=== PATIENT | female | born 1935 | race Caucasian/White ===

== ENCOUNTER 2018-02-15 05:36 | Inpatient (IN) | payer MEDICARE, OTHER ==
[2018-02-15] MEDS ORDERED: Ondansetron 4 MG/2 ML SDV IVPUSH ONE (06:08)
[2018-02-15] MEDS ORDERED: fentaNYL 100 MCG/2 ML SDV IVPUSH ONE (06:08)
--- NOTE | 2018-02-15 06:08 | EDM.PDOC ---
ED HPI GENERAL MEDICAL PROBLEM - General Chief Complaint: Abdominal Pain Stated Complaint: R Side Pain Time Seen by Provider: 02/15/18 06:02 Source of Information: Reports: Patient - History of Present Illness INITIAL COMMENTS - FREE TEXT/NARRATIVE: Ila is an 82 year old female who presents to the Ed with c/o RUQ abdominal pain. She rates the pain a 9/10 and describes it as sharp in nature. She reports she woke from sleep around 3 am with onset of pain. She does reports that about 3 weeks ago she had a hysterectomy and then subsequently developed a SBO. She reports that she had surgery for SBO as well, however she does not know what and records are not obtainable. She also reports that she saw Dr. Talbot in clinic this week and was started on an antibiotic for a UTI. She reports she has had a decreased appetite the past few days. She reports she is nauseated, but has not vomited. Denies any fever, reports she has been chilled. Reports she had a BM yesterday morning. Does not notice she is passing much gas. She denies any urinary frequency or urgency. Reports she has had an occasional nonproductive cough. She denies any shortness of breath, however she does appear slightly winded with conversation. Onset: Today, Sudden Onset Date: 02/15/18 Onset Time: 03:00 Right Thoracic Pain Score (Numeric/FACES): 9 - Related Data Allergies Allergy/AdvReac Type Severity Reaction Status Date / Time No Known Allergies Allergy Verified 02/15/18 05:37 Home Meds: Home Meds Cefuroxime Axetil [Cefuroxime] 250 mg PO DAILY 02/15/18 [History] Pantoprazole Sodium [Protonix] 20 mg PO DAILY 02/15/18 [History] Sucralfate 1 gm PO DAILY 02/15/18 [History] Past Medical History HEENT History: Reports: None Cardiovascular History: Reports: None Respiratory History: Reports: None Gastrointestinal History: Reports: Bowel Obstruction Genitourinary History: Reports: None [employer]IAN History: Reports: None Musculoskeletal History: Reports: None Neurological History: Reports: None Psychiatric History: Reports: None Endocrine/Metabolic History: Reports: None Hematologic History: Reports: None Immunologic History: Reports: None Oncologic (Cancer) History: Reports: None Dermatologic History: Reports: None - Infectious Disease History Infectious Disease History: Reports: None - Past Surgical History Head Surgeries/Procedures: Reports: None HEENT Surgical History: Reports: None Cardiovascular Surgical History: Reports: None Respiratory Surgical History: Reports: None GI Surgical History: Reports: Small Bowel Female Surgical History: Reports: Hysterectomy Endocrine Surgical History: Reports: None Neurological Surgical History: Reports: None Musculoskeletal Surgical History: Reports: Other (See Below) Other Musculoskeletal Surgeries/Procedures:: R foot surgery Oncologic Surgical History: Reports: None Social & Family History - Family History Family Medical History: Noncontributory - Tobacco Use Smoking Status *Q: Never Smoker ED ROS GENERAL - Review of Systems Review Of Systems: See Below Constitutional: Reports: Chills, Fatigue, Decreased Appetite. Denies: Fever, Weakness HEENT: Reports: No Symptoms Respiratory: Denies: Shortness of Breath, Cough, Sputum Cardiovascular: Denies: Chest Pain, Dyspnea on Exertion, Lightheadedness GI/Abdominal: Reports: Abdominal Pain, Nausea. Denies: Constipation, Diarrhea, Distension, Vomiting : Denies: Dysuria, Frequency, Urgency Musculoskeletal: Reports: No Symptoms Skin: Reports: No Symptoms Neurological: Reports: No Symptoms. Denies: Confusion, Dizziness, Headache, Numbness, Tingling, Weakness Psychiatric: Reports: No Symptoms Hematologic/Lymphatic: Reports: No Symptoms Immunologic: Reports: No Symptoms ED EXAM, GI/ABD - Physical Exam Exam: See Below Exam Limited By: No Limitations General Appearance: Alert, WD/WN, Moderate Distress Head: Atraumatic, Normocephalic Neck: Normal Inspection, Supple, Non-Tender, Full Range of Motion Respiratory/Chest: No Respiratory Distress, Lungs Clear, Normal Breath Sounds, No Accessory Muscle Use, Chest Non-Tender Cardiovascular: Normal Peripheral Pulses, Regular Rate, Rhythm, No Edema, No Gallop, No JVD, No Murmur, No Rub GI/Abdominal Exam: Normal Bowel Sounds, Distended, Tender. No: Guarding, Rigid , Rebound Back Exam: Normal Inspection, Full Range of Motion. No: CVA Tenderness (L), CVA Tenderness (R) Extremities: Normal Inspection, Normal Range of Motion, Non-Tender, Normal Capillary Refill, No Pedal Edema Neurological: Alert, Oriented, CN II-XII Intact, Normal Cognition, Normal Gait, Normal Reflexes, No Motor/Sensory Deficits Psychiatric: Normal Affect, Normal Mood Skin Exam: Warm, Dry, Intact, Normal Color, No Rash Lymphatic: No Adenopathy Course - Vital Signs Last Recorded V/S: Last Vital Signs Temp 99.1 F 02/15/18 20:35 Pulse 84 02/15/18 19:18 Resp 18 02/15/18 19:18 BP 119/58 L 02/15/18 19:18 Pulse Ox 93 L 02/15/18 19:18 - Orders/Labs/Meds Orders: Active Orders 24 hr Category Date Time Status Abdomen Pelvis w Cont [CT] Stat Exams 02/15/18 06:34 Taken CTA Chest W WO Contrast [Ang Chest] [CT] Stat Exams 02/15/18 07:19 Taken Medication Orders Acetaminophen (Tylenol) 650 mg PO Q4H PRN PRN Reason: Pain (Mild 1-3)/fever Last Admin: 02/15/18 20:09 Dose: 650 mg Ceftriaxone Sodium (Rocephin) 1 gm IVPUSH Q24H [facility] [place] Last Admin: 02/15/18 10:01 Dose: 1 gm Enoxaparin Sodium (Lovenox) 60 mg SUBCUT Q12H [facility] [place] Last Admin: 02/15/18 20:09 Dose: 60 mg Admin: 02/15/18 10:02 Dose: 60 mg Fentanyl (Sublimaze) 25 mcg IVPUSH Q12H PRN PRN Reason: Pain Last Admin: 02/15/18 09:58 Dose: 25 mcg Lactated Ringer's (Ringers, Lactated) 1,000 mls @ 75 mls/hr IV ONETIME ONE Stop: 02/16/18 00:19 Last Admin: 02/15/18 14:25 Dose: 75 mls/hr Ondansetron HCl (Zofran) 4 mg IV Q6H PRN PRN Reason: Nausea/Vomiting Temazepam (Restoril) 15 mg PO BEDTIME PRN PRN Reason: Sleep Warfarin Sodium (Coumadin) 5 mg PO DAILY@1200 [facility] [place] Last Admin: 02/15/18 12:11 Dose: 5 mg Labs: Laboratory Tests 02/15/18 02/15/18 02/15/18 Range/Units 05:40 05:45 05:45 WBC 13.0 H (5.0-10.0) 10^3/uL RBC 4.04 (4.00-5.50) 10^6/uL Hgb 12.4 (12.0-16.0) g/dL Hct 38.2 (37.0-47.0) % MCV 94.6 H (82.0-94.0) fL MCH 30.7 (27.0-32.0) pg MCHC 32.5 L (33.0-38.0) g/dL RDW Coeff of Evonne 13.2 (11.0-15.0) % Plt Count 274 (150-400) 10^3/uL Neut % (Auto) 69.7 (35-85) % Lymph % (Auto) 19.6 (10-55) % Webb % (Auto) 8.5 (0-16) % Eos % (Auto) 1.7 (0-5) % Baso % (Auto) 0.5 (0-3) % Neut # (Auto) 9.06 H (1.80-7.00) 10^3/uL Lymph # (Auto) 2.55 (1.00-4.80) 10^3/uL Webb # (Auto) 1.11 H (0.00-0.80) 10^3/uL Eos # (Auto) 0.22 (0.00-0.45) 10^3/uL Baso # (Auto) 0.06 10^3/uL D-Dimer, Quantitative (0.00-0.50) Sodium 137 (136-145) mEq/L Potassium 4.1 D (3.5-5.0) mEq/L Chloride 101 (98-106) mEq/L Carbon Dioxide 25 (21-32) mmol/L BUN 12 (7-18) mg/dL Creatinine 0.8 (0.6-1.0) mg/dL Est Cr Clr Drug Dosing 38.27 mL/min Estimated GFR (MDRD) > 60 (>=60) mL/min Glucose 114 H (75-99) mg/dL Calcium 8.5 (8.4-10.1) mg/dL Total Bilirubin 0.6 (0.0-1.0) mg/dL AST 19 (15-37) U/L ALT 15 (12-78) U/L Alkaline Phosphatase 91 (46-116) U/L C-Reactive Protein 5.8 H (0.2-0.8) mg/dL Total Protein 6.7 (6.4-8.2) g/dL Albumin 2.7 L (3.4-5.0) g/dL Urine Color Yellow (YELLOW) Urine Appearance Cloudy (CLEAR) Urine pH 6.0 (4.5-8.0) Ur Specific [place] 1.020 (1.003-1.020) Urine Protein Trace H (NEGATIVE) mg/dL Urine Glucose (UA) Negative (NEGATIVE) mg/dL Urine Ketones Negative (NEGATIVE) mg/dL Urine Occult Blood Trace-lysed H (NEGATIVE) Urine Nitrite Negative (NEGATIVE) Urine Bilirubin Negative (NEGATIVE) Urine Urobilinogen 0.2 (0.2-1.0) EU/dL Ur Leukocyte Esterase Large H (NEGATIVE) Urine RBC Not seen (0-5) /HPF Urine WBC 30-40 H (0-5) /HPF Ur Squamous Epith Cells Moderate H (NOT SEEN) /HPF Urine Bacteria Moderate H (NOT SEEN) /HPF 02/15/18 Range/Units 06:35 WBC (5.0-10.0) 10^3/uL RBC (4.00-5.50) 10^6/uL Hgb (12.0-16.0) g/dL Hct (37.0-47.0) % MCV (82.0-94.0) fL MCH (27.0-32.0) pg MCHC (33.0-38.0) g/dL RDW Coeff of Evonne (11.0-15.0) % Plt Count (150-400) 10^3/uL Neut % (Auto) (35-85) % Lymph % (Auto) (10-55) % Webb % (Auto) (0-16) % Eos % (Auto) (0-5) % Baso % (Auto) (0-3) % Neut # (Auto) (1.80-7.00) 10^3/uL Lymph # (Auto) (1.00-4.80) 10^3/uL Webb # (Auto) (0.00-0.80) 10^3/uL Eos # (Auto) (0.00-0.45) 10^3/uL Baso # (Auto) 10^3/uL D-Dimer, Quantitative 5.41 H (0.00-0.50) Sodium (136-145) mEq/L Potassium (3.5-5.0) mEq/L Chloride (98-106) mEq/L Carbon Dioxide (21-32) mmol/L BUN (7-18) mg/dL Creatinine (0.6-1.0) mg/dL Est Cr Clr Drug Dosing mL/min Estimated GFR (MDRD) (>=60) mL/min Glucose (75-99) mg/dL Calcium (8.4-10.1) mg/dL Total Bilirubin (0.0-1.0) mg/dL AST (15-37) U/L ALT (12-78) U/L Alkaline Phosphatase (46-116) U/L C-Reactive Protein (0.2-0.8) mg/dL Total Protein (6.4-8.2) g/dL Albumin (3.4-5.0) g/dL Urine Color (YELLOW) Urine Appearance (CLEAR) Urine pH (4.5-8.0) Ur Specific [place] (1.003-1.020) Urine Protein (NEGATIVE) mg/dL Urine Glucose (UA) (NEGATIVE) mg/dL Urine Ketones (NEGATIVE) mg/dL Urine Occult Blood (NEGATIVE) Urine Nitrite (NEGATIVE) Urine Bilirubin (NEGATIVE) Urine Urobilinogen (0.2-1.0) EU/dL Ur Leukocyte Esterase (NEGATIVE) Urine RBC (0-5) /HPF Urine WBC (0-5) /HPF Ur Squamous Epith Cells (NOT SEEN) /HPF Urine Bacteria (NOT SEEN) /HPF Meds: Medications Generic Name Dose Route Start Last Admin Trade Name Freq PRN Reason Stop Dose Admin Acetaminophen 650 mg 02/15/18 09:23 02/15/18 20:09 Tylenol PO 650 mg Q4H PRN Administration Pain (Mild 1-3)/fever Ceftriaxone Sodium 1 gm 02/15/18 10:00 02/15/18 10:01 Rocephin IVPUSH 1 gm Q24H [place] Administration Enoxaparin Sodium 60 mg 02/15/18 09:00 02/15/18 20:09 Lovenox SUBCUT 60 mg Q12H [place] Administration Fentanyl 25 mcg 02/15/18 09:36 02/15/18 09:58 Sublimaze IVPUSH 25 mcg Q12H PRN Administration Pain Lactated Ringer's 1,000 mls @ 75 mls/hr 02/15/18 11:00 02/15/18 14:25 Ringers, Lactated IV 02/16/18 00:19 75 mls/hr ONETIME ONE Administration Ondansetron HCl 4 mg 02/15/18 09:23 Zofran IV Q6H PRN Nausea/Vomiting Temazepam 15 mg 02/15/18 09:23 Restoril PO BEDTIME PRN Sleep Warfarin Sodium 5 mg 02/15/18 12:00 02/15/18 12:11 Coumadin PO 5 mg DAILY@1200 [place] Administration Discontinued Medications Generic Name Dose Route Start Last Admin Trade Name Freq PRN Reason Stop Dose Admin Fentanyl 50 mcg 02/15/18 06:08 02/15/18 06:22 Sublimaze IVPUSH 02/15/18 06:09 50 mcg ONETIME ONE Administration Lactated Ringer's 1,000 mls @ 999 mls/hr 02/15/18 06:25 02/15/18 06:44 Ringers, Lactated IV 02/15/18 07:25 999 mls/hr .BOLUS ONE Administration Iopamidol 100 ml 02/15/18 07:24 02/15/18 07:48 Isovue-370 (76%) IVPUSH 02/15/18 07:25 100 ml ONETIME ONE Administration Ondansetron HCl 4 mg 02/15/18 06:08 02/15/18 06:21 Zofran IVPUSH 02/15/18 06:09 4 mg STAT ONE Administration Departure - Departure Time of Disposition: 09:13 Disposition: Admitted As Inpatient 65 Condition: Fair Clinical Impression: Pulmonary embolism, bilateral, Status post hysterectomy, UTI (urinary tract infection) - Discharge Information - Problem List & Annotations (1) Pulmonary embolism, bilateral SNOMED Code(s): 43689099 Code(s): I26.99 - OTHER PULMONARY EMBOLISM WITHOUT ACUTE COR PULMONALE Status: Acute Current Visit: Yes (2) UTI (urinary tract infection) SNOMED Code(s): 57082850 Code(s): N39.0 - URINARY TRACT INFECTION, SITE NOT SPECIFIED Status: Acute Current Visit: Yes Qualifiers: Urinary tract infection type: site unspecified Hematuria presence: without hematuria Qualified Code(s): N39.0 - Urinary tract infection, site not specified (3) Status post hysterectomy SNOMED Code(s): 689708806, 750494409, 356283034 Code(s): Z90.710 - ACQUIRED ABSENCE OF BOTH CERVIX AND UTERUS Status: Acute Current Visit: Yes - Problem List Review Problem List Initiated/Reviewed/Updated: Yes - My Orders Last 24 Hours: My Active Orders 02/15/18 06:34 Abdomen Pelvis w Cont [CT] Stat 02/15/18 07:19 CTA Chest W WO Contrast [Ang Chest] [CT] Stat - Assessment/Plan Admission H&P: Please use this note as an admission H&P Last 24 Hours: My Active Orders 02/15/18 06:34 Abdomen Pelvis w Cont [CT] Stat 02/15/18 07:19 CTA Chest W WO Contrast [Ang Chest] [CT] Stat Plan: CTA chest reveals bilateral segmental and proximal subsegmental branches involving all lobes of the lungs. CTA abdomen/pelvis reveals no acute inflammatory process or abdomen or pelvis. Diverticulosis without diverticulitis. Will admit patient acute to Dr. Talbot for IV antibiotics and initiation of anticoagulation. Discussed with patient that these PEs are likely from recent surgery and increased risk during that time. Discussed that she will need to be anticoagulated for at least a 3 month period. She does report that she had some pain in her right calf last week, none currently. Discussed options for anticoagulation with patient and her . Opt to initiate Coumadin therapy. Will dose 5 mg today. Bridge with Lovenox until INR therapeutic. UA positive. Patient has failed outpatient therapy. She was currently taking Ceftin. Will get urine culture. Start Rocephin. Recheck labs in am.
[2018-02-15 06:13] LABS: CHLORIDE,CL 101 mEq/L (98-106); SODIUM,NA 137 mEq/L (136-145)
[2018-02-15] MEDS ORDERED: Lactated Ringers 1,000 ML IV ONE ×2 (06:25→11:00)
[2018-02-15] MEDS ORDERED: Iopamidol 755 Mg/ML 100 ML Bottle IVPUSH ONE (07:24)
[2018-02-15] MEDS ORDERED: Ondansetron 4 MG/2 ML SDV IV PRN (09:23)
[2018-02-15] MEDS ORDERED: Temazepam 15 MG Cap PO PRN (09:23)
[2018-02-15] MEDS ORDERED: fentaNYL 100 MCG/2 ML SDV IVPUSH PRN (09:36)
[2018-02-15] MEDS: cefTRIAXone 1 GM Vial IVPUSH SCH (10:01)
[2018-02-15] MEDS: Enoxaparin 60 MG/0.6 ML Syringe SUBCUT SCH ×2 (10:02→20:09)
[2018-02-15] MEDS: Warfarin 5 MG Tab PO SCH (12:11)
[2018-02-15] MEDS: Acetaminophen 325 MG Tab PO PRN (20:09)
--- NOTE | 2018-02-16 10:11 | PCM.PN ---
- General Info Date of Service: 02/16/18 Admission Dx/Problem (Free Text): Multiple Bilateral Pulmonary Emboli UTI Subjective Update: Ila reports she is feeling a little better this morning. She reports she still feels weak and has a very decreased appetite. Continues to have pleuritic pain to her right side, worsens with breathing. She also reports she feels nauseated with food and has some epigastric pain. She reports she has "stuggled with ulcers for years." Functional Status: Reports: Pain Controlled, Tolerating Diet, Ambulating, Urinating. Denies: New Symptoms - Review of Systems General: Reports: Weakness, Fatigue. Denies: Fever, Chills HEENT: Reports: No Symptoms Pulmonary: Reports: Pleuritic Chest Pain. Denies: Shortness of Breath, Cough, Sputum, Hemoptysis, Wheezing Cardiovascular: Reports: No Symptoms. Denies: Chest Pain, Dyspnea on Exertion, Edema, Lightheadedness Gastrointestinal: Reports: Abdominal Pain (epigastric), Decreased Appetite, Nausea. Denies: Constipation, Diarrhea, Hematochezia, Melena, Vomiting Genitourinary: Reports: No Symptoms. Denies: Dysuria, Frequency, Urgency Musculoskeletal: Reports: No Symptoms Skin: Reports: No Symptoms Neurological: Reports: Weakness. Denies: Confusion, Dizziness, Headache, Numbness, Tingling Psychiatric: Reports: No Symptoms - Patient Data Vitals - Most Recent: Last Vital Signs Temp 99 F 02/16/18 07:47 Pulse 85 02/16/18 07:47 Resp 18 02/16/18 07:47 BP 133/75 02/16/18 07:47 Pulse Ox 96 02/16/18 07:47 Weight - Most Recent: 150 lb 12.8 oz Lab Results Last 24 Hours: Laboratory Results - last 24 hr 02/16/18 02/16/18 02/16/18 Range/Units 07:25 07:25 07:25 WBC 10.8 H (5.0-10.0) 10^3/uL RBC 3.86 L (4.00-5.50) 10^6/uL Hgb 11.6 L (12.0-16.0) g/dL Hct 36.7 L (37.0-47.0) % MCV 95.1 H (82.0-94.0) fL MCH 30.1 (27.0-32.0) pg MCHC 31.6 L (33.0-38.0) g/dL RDW Coeff of Evonne 13.1 (11.0-15.0) % Plt Count 247 (150-400) 10^3/uL Neut % (Auto) 69.3 (35-85) % Lymph % (Auto) 17.1 (10-55) % [place] % (Auto) 8.3 (0-16) % Eos % (Auto) 4.7 (0-5) % Baso % (Auto) 0.6 (0-3) % Neut # (Auto) 7.48 H (1.80-7.00) 10^3/uL Lymph # (Auto) 1.85 (1.00-4.80) 10^3/uL [place] # (Auto) 0.90 H (0.00-0.80) 10^3/uL Eos # (Auto) 0.51 H (0.00-0.45) 10^3/uL Baso # (Auto) 0.07 10^3/uL PT 11.3 (9.7-12.3) SEC INR 1.09 (0.92-1.18) C-Reactive Protein 12.1 H (0.2-0.8) mg/dL Glynn Results Last 24 Hours: Microbiology 02/15/18 09:23 Urine Culture - Preliminary Urine, Voided Med Orders - Current: Current Medications Acetaminophen (Tylenol) 650 mg PO Q4H PRN PRN Reason: Pain (Mild 1-3)/fever Last Admin: 02/15/18 20:09 Dose: 650 mg Ceftriaxone Sodium (Rocephin) 1 gm IVPUSH Q24H [place] Last Admin: 02/15/18 10:01 Dose: 1 gm Enoxaparin Sodium (Lovenox) 60 mg SUBCUT Q12H [facility] Last Admin: 02/15/18 20:09 Dose: 60 mg Fentanyl (Sublimaze) 25 mcg IVPUSH Q12H PRN PRN Reason: Pain Last Admin: 02/15/18 09:58 Dose: 25 mcg Ondansetron HCl (Zofran) 4 mg IV Q6H PRN PRN Reason: Nausea/Vomiting Temazepam (Restoril) 15 mg PO BEDTIME PRN PRN Reason: Sleep Warfarin Sodium (Coumadin) 5 mg PO DAILY@1200 [place] Last Admin: 02/15/18 12:11 Dose: 5 mg Discontinued Medications Fentanyl (Sublimaze) 50 mcg IVPUSH ONETIME ONE Stop: 02/15/18 06:09 Last Admin: 02/15/18 06:22 Dose: 50 mcg Lactated Ringer's (Ringers, Lactated) 1,000 mls @ 999 mls/hr IV .BOLUS ONE Stop: 02/15/18 07:25 Last Admin: 02/15/18 06:44 Dose: 999 mls/hr Lactated Ringer's (Ringers, Lactated) 1,000 mls @ 75 mls/hr IV ONETIME ONE Stop: 02/16/18 00:19 Last Admin: 02/15/18 14:25 Dose: 75 mls/hr Iopamidol (Isovue-370 (76%)) 100 ml IVPUSH ONETIME ONE Stop: 02/15/18 07:25 Last Admin: 02/15/18 07:48 Dose: 100 ml Ondansetron HCl (Zofran) 4 mg IVPUSH STAT ONE Stop: 02/15/18 06:09 Last Admin: 02/15/18 06:21 Dose: 4 mg - Exam Quality Assessment: DVT Prophylaxis General: Alert, Oriented, No Acute Distress Neck: Supple Lungs: Clear to Auscultation, Normal Respiratory Effort Cardiovascular: Regular Rate, Regular Rhythm GI/Abdominal Exam: Normal Bowel Sounds, Soft, No Organomegaly, No Distention, No Abnormal Bruit, Tender (epigastric). No: Guarding, Rigid, Rebound Back Exam: Normal Inspection, Full Range of Motion. No: CVA Tenderness (L), CVA Tenderness (R) Extremities: Normal Inspection, Normal Range of Motion, Non-Tender, No Pedal Edema, Normal Capillary Refill Skin: Warm, Dry, Intact Neurological: No New Focal Deficit Psy/Mental Status: Alert, Normal Affect, Normal Mood - Problem List & Annotations (1) Pulmonary embolism, bilateral SNOMED Code(s): 38079639 Code(s): I26.99 - OTHER PULMONARY EMBOLISM WITHOUT ACUTE COR PULMONALE Status: Acute Current Visit: Yes (2) UTI (urinary tract infection) SNOMED Code(s): 98839464 Code(s): N39.0 - URINARY TRACT INFECTION, SITE NOT SPECIFIED Status: Acute Current Visit: Yes Qualifiers: Urinary tract infection type: site unspecified Hematuria presence: without hematuria Qualified Code(s): N39.0 - Urinary tract infection, site not specified (3) Status post hysterectomy SNOMED Code(s): 058767217, 553411597, 711690522 Code(s): Z90.710 - ACQUIRED ABSENCE OF BOTH CERVIX AND UTERUS Status: Acute Current Visit: Yes - Problem List Review Problem List Initiated/Reviewed/Updated: Yes - My Orders Last 24 Hours: My Active Orders 02/15/18 09:23 Patient Status [ADT] Routine Cardiac Monitoring [RC] 0800,2000 Oxygen Therapy [RC] .PRN Pulse Oximetry [RC] .PRN Up With Assistance [RC] .PRN Vital Signs [RC] 0000,0400,0800,1200,1600,2000 CULTURE URINE [RM] Stat Acetaminophen [Tylenol] 650 mg PO Q4H PRN Ondansetron [Zofran] 4 mg IV Q6H PRN Temazepam [Restoril] 15 mg PO BEDTIME PRN 02/15/18 09:36 fentaNYL [Sublimaze] 25 mcg IVPUSH Q12H PRN 02/15/18 10:00 cefTRIAXone [Rocephin] 1 gm IVPUSH Q24H 02/15/18 10:50 JOSE RAMON Hose [Antiembolic Hose] [OM.PC] Routine 02/15/18 12:00 Warfarin [Coumadin] 5 mg PO DAILY@1200 02/15/18 Lunch Regular Diet [DIET] 02/17/18 06:00 INR,PT,PROTHROMBIN TIME [COAG] DAILY 02/18/18 06:00 INR,PT,PROTHROMBIN TIME [COAG] DAILY 02/19/18 06:00 INR,PT,PROTHROMBIN TIME [COAG] DAILY 02/20/18 06:00 INR,PT,PROTHROMBIN TIME [COAG] DAILY - Assessment Assessment:: Multiple Bilateral Pulmonary Emboli UTI S/P Hysterectomy - Plan Plan:: 02/16/2018 Ila is an 82 year old female who was admitted for multiple bilateral PEs and UTI. She recently had a abdominal hysterectomy, in which she subsequently developed a SBO. She has been home for a few weeks. Incision site looks great. Presented to the ED with generalized c/o not feeling well. UA was positive. Chest CTA revealed multiple PEs. WBC improved from 13 to 10.8. CRP increased from 5.8 to 12.1. Preliminary UC negative. Will continue Rocephin and await final culture results. INR 1.09. Patient received 5 mg Coumadin yesterday. Will dose 5 mg again today and recheck INR tomorrow. Continue to bridge with lovenox. Will start protonix to see if this helps with patient's nausea and epigastric pain. She report she was on this in the past for PUD. Recheck labs in am. Patient will need to be hospitalized until INR is therapeutic. Patient agreeable with plan.
[2018-02-16] MEDS: cefTRIAXone 1 GM Vial IVPUSH SCH (10:17)
[2018-02-16] MEDS: Enoxaparin 60 MG/0.6 ML Syringe SUBCUT SCH ×2 (10:18→20:11)
[2018-02-16] MEDS: Acetaminophen 325 MG Tab PO PRN ×2 (10:23→18:28)
[2018-02-16] MEDS: Pantoprazole 40 MG Vial IVPUSH SCH (11:20)
[2018-02-16] MEDS: Warfarin 5 MG Tab PO SCH (11:21)
[2018-02-17] MEDS: Enoxaparin 60 MG/0.6 ML Syringe SUBCUT SCH ×2 (08:12→19:44)
[2018-02-17] MEDS: Pantoprazole 40 MG Vial IVPUSH SCH (08:12)
--- NOTE | 2018-02-17 10:10 | PN ---
DATE: 02/17/2018 S: Ila was seen for a new onset of pleuritic chest pain. She was found to have postop PE. Multiple, I believe she has been initiated on Lovenox and Coumadin has been started. INR still slightly subtherapeutic. She is feeling better. Denies pain. Still having some ongoing dyspepsia related to her abdominal surgeries initially a lap ovarian cyst removal with secondary small bowel obstruction, which required an open laparotomy. A CT of the abdomen and pelvis, I believe was unremarkable on admit. Since admission, she has steadily felt better. She has been afebrile. Her vital signs are stable. She is maintaining her sats. Denies any pain this morning. O: GENERAL: She is pleasant and cooperative. HEENT: Benign. NECK: Veins are flat. LUNG: Sounds are clear. CARDIAC: Tones are regular. ABDOMEN: Appears soft with good bowel sounds. EXTREMITIES: No peripheral edema seen. ASSESSMENT: 1. POSTOP PULMONARY EMBOLISM. 2. ONGOING ABDOMINAL PAIN STATUS POST OPEN LAPAROTOMY. 3. URINARY TRACT INFECTION WITH STAPH SPECIES. P: Her urine culture shows resistance. We are going to switch over to vancomycin. Continue to monitor her CRP and white counts. INR is slightly still subtherapeutic. We will continue oral Coumadin and Lovenox. No other changes at this time. JASBIR/ZAKI /[id number]
[2018-02-17] MEDS: Warfarin 5 MG Tab PO SCH (11:57)
[2018-02-17] MEDS ORDERED: cefTRIAXone 1 GM Vial IVPUSH SCH (12:00)
[2018-02-18] MEDS: Pantoprazole 40 MG Vial IVPUSH SCH (06:28)
[2018-02-18] MEDS: Enoxaparin 60 MG/0.6 ML Syringe SUBCUT SCH ×2 (07:25→19:31)
--- NOTE | 2018-02-18 09:29 | PCM.PN ---
- General Info Date of Service: 02/18/18 Admission Dx/Problem (Free Text): Multiple Bilateral Pulmonary Emboli UTI Subjective Update: Ila reports she is feeling better. Does report her appetite is still very poor. She reports she has been up walking some in the [place], but admits to being lazy and lying around. She denies any pain. She has been afebrile. VSS on RA. Functional Status: Reports: Pain Controlled, Tolerating Diet, Ambulating, Urinating. Denies: New Symptoms - Review of Systems General: Reports: Fatigue. Denies: Fever, Weakness, Chills HEENT: Reports: No Symptoms Pulmonary: Reports: Pleuritic Chest Pain (intermittently). Denies: Shortness of Breath, Cough, Sputum, Hemoptysis, Wheezing Cardiovascular: Reports: No Symptoms Gastrointestinal: Reports: No Symptoms, Decreased Appetite. Denies: Abdominal Pain, Constipation, Diarrhea, Nausea, Vomiting Genitourinary: Reports: No Symptoms. Denies: Dysuria, Frequency, Urgency Musculoskeletal: Reports: No Symptoms Skin: Reports: No Symptoms Neurological: Reports: No Symptoms Psychiatric: Reports: No Symptoms - Patient Data Vitals - Most Recent: Last Vital Signs Temp 98.1 F 02/18/18 07:36 Pulse 74 02/18/18 07:36 Resp 18 02/18/18 07:36 BP 126/69 02/18/18 07:36 Pulse Ox 96 02/18/18 07:36 Weight - Most Recent: 150 lb 12.8 oz Lab Results Last 24 Hours: Laboratory Results - last 24 hr 02/18/18 Range/Units 06:00 PT 17.6 H (9.7-12.3) SEC INR 1.77 H (0.92-1.18) Glynn Results Last 24 Hours: Microbiology 02/15/18 09:23 Urine Culture - Final Urine, Voided Staphylococcus Haemolyticus Med Orders - Current: Current Medications Acetaminophen (Tylenol) 650 mg PO Q4H PRN PRN Reason: Pain (Mild 1-3)/fever Last Admin: 02/16/18 18:28 Dose: 650 mg Enoxaparin Sodium (Lovenox) 60 mg SUBCUT BID [place] Last Admin: 02/18/18 07:25 Dose: 60 mg Fentanyl (Sublimaze) 25 mcg IVPUSH Q12H PRN PRN Reason: Pain Last Admin: 02/15/18 09:58 Dose: 25 mcg Vancomycin HCl 1 gm/ Sodium (Chloride) 250 mls @ 167 mls/hr IV DAILY@0800 [facility] Last Admin: 02/18/18 07:23 Dose: 167 mls/hr Ondansetron HCl (Zofran) 4 mg IV Q6H PRN PRN Reason: Nausea/Vomiting Pantoprazole Sodium (Protonix Iv) 40 mg IVPUSH DAILY@0700 [facility] Last Admin: 02/18/18 06:28 Dose: 40 mg Temazepam (Restoril) 15 mg PO BEDTIME PRN PRN Reason: Sleep Warfarin Sodium (Coumadin) 5 mg PO DAILY@1200 [facility] Last Admin: 02/17/18 11:57 Dose: 5 mg Discontinued Medications Ceftriaxone Sodium (Rocephin) 1 gm IVPUSH Q24H [facility] Last Admin: 02/16/18 10:17 Dose: 1 gm Ceftriaxone Sodium (Rocephin) 1 gm IVPUSH DAILY@1200 [facility] Enoxaparin Sodium (Lovenox) 60 mg SUBCUT Q12H [facility] Last Admin: 02/17/18 08:12 Dose: 60 mg Fentanyl (Sublimaze) 50 mcg IVPUSH ONETIME ONE Stop: 02/15/18 06:09 Last Admin: 02/15/18 06:22 Dose: 50 mcg Lactated Ringer's (Ringers, Lactated) 1,000 mls @ 999 mls/hr IV .BOLUS ONE Stop: 02/15/18 07:25 Last Admin: 02/15/18 06:44 Dose: 999 mls/hr Lactated Ringer's (Ringers, Lactated) 1,000 mls @ 75 mls/hr IV ONETIME ONE Stop: 02/16/18 00:19 Last Admin: 02/15/18 14:25 Dose: 75 mls/hr Iopamidol (Isovue-370 (76%)) 100 ml IVPUSH ONETIME ONE Stop: 02/15/18 07:25 Last Admin: 02/15/18 07:48 Dose: 100 ml Ondansetron HCl (Zofran) 4 mg IVPUSH STAT ONE Stop: 02/15/18 06:09 Last Admin: 02/15/18 06:21 Dose: 4 mg - Exam Quality Assessment: No: Supplemental Oxygen General: Alert, Oriented, No Acute Distress Neck: Supple Lungs: Clear to Auscultation, Normal Respiratory Effort Cardiovascular: Regular Rate, Regular Rhythm GI/Abdominal Exam: Normal Bowel Sounds, Soft, No Distention, Tender (LLQ) Skin: Warm, Dry, Intact Wound/Incisions: Healing Well Neurological: No New Focal Deficit Psy/Mental Status: Alert, Normal Affect, Normal Mood - Problem List & Annotations (1) Pulmonary embolism, bilateral SNOMED Code(s): 22111273 Code(s): I26.99 - OTHER PULMONARY EMBOLISM WITHOUT ACUTE COR PULMONALE Status: Acute (2) UTI (urinary tract infection) SNOMED Code(s): 85960859 Code(s): N39.0 - URINARY TRACT INFECTION, SITE NOT SPECIFIED Status: Acute Qualifiers: Urinary tract infection type: site unspecified Hematuria presence: without hematuria Qualified Code(s): N39.0 - Urinary tract infection, site not specified (3) Status post hysterectomy SNOMED Code(s): 152370535, 296960756, 236852821 Code(s): Z90.710 - ACQUIRED ABSENCE OF BOTH CERVIX AND UTERUS Status: Acute - Problem List Review Problem List Initiated/Reviewed/Updated: Yes - My Orders Last 24 Hours: My Active Orders 02/17/18 20:00 Enoxaparin [Lovenox] 60 mg SUBCUT BID 02/19/18 05:11 C-REACTIVE PROTEIN [CHEM] AM CBC WITH AUTO DIFF [HEME] AM 02/19/18 06:00 BMP [BASIC METABOLIC PANEL,BMP] [CHEM] Routine INR,PT,PROTHROMBIN TIME [COAG] DAILY 02/20/18 06:00 INR,PT,PROTHROMBIN TIME [COAG] DAILY - Assessment Assessment:: Multiple Bilateral Pulmonary Emboli UTI S/P Hysterectomy - Plan Plan:: 02/16/2018 Ila is an 82 year old female who was admitted for multiple bilateral PEs and UTI. She recently had a abdominal hysterectomy, in which she subsequently developed a SBO. She has been home for a few weeks. Incision site looks great. Presented to the ED with generalized c/o not feeling well. UA was positive. Chest CTA revealed multiple PEs. WBC improved from 13 to 10.8. CRP increased from 5.8 to 12.1. Preliminary UC negative. Will continue Rocephin and await final culture results. INR 1.09. Patient received 5 mg Coumadin yesterday. Will dose 5 mg again today and recheck INR tomorrow. Continue to bridge with lovenox. Will start protonix to see if this helps with patient's nausea and epigastric pain. She report she was on this in the past for PUD. Recheck labs in am. Patient will need to be hospitalized until INR is therapeutic. Patient agreeable with plan. 02/18/2018 Ila reports she is feeling well and wishes to go home today, however INR remains subtherapeutic at 1.77. Urine culture shows staph haemolyticus with resistance. Patient was switched to vancomycin yesterday 02/17/2018. Patient will need to be discharged home on Nitrofurantoin for UTI. Labs are improving. Encourage ambulation. We will keep patient until tomorrow, as INR remains subtherapeutic. Will dose 7.5 mg Coumadin today. Continue Vanco. Continue Lovenox until INR therapeutic. Discharge tomorrow if INR therapeutic.
[2018-02-18] MEDS: Warfarin 5 MG Tab PO SCH (12:00)
[2018-02-18] MEDS ORDERED: Warfarin 2.5 MG Tab PO ONE (12:00)
[2018-02-19] MEDS: Enoxaparin 60 MG/0.6 ML Syringe SUBCUT SCH (07:13)
[2018-02-19] MEDS: Pantoprazole 40 MG Vial IVPUSH SCH (07:47)
[2018-02-19 08:13] LABS: CHLORIDE,CL 106 mEq/L (98-106); SODIUM,NA 142 mEq/L (136-145)
--- NOTE | 2018-02-19 10:16 | DISCH ---
DISCHARGE DIAGNOSIS: BILATERAL PULMONARY EMBOLI AND URINARY TRACT INFECTION STATUS POST HYSTERECTOMY. PROCEDURES: None. HISTORY: Ila is an 82-year-old female, who was admitted with multiple bilateral PEs and UTI. She had a recent abdominal hysterectomy three weeks prior to admission, in which she subsequently developed a small bowel obstruction. As she had been home again for those few weeks, ended up coming to the ER just not feeling well. Urinalysis was positive. CTA of the chest did reveal multiple PEs. LABORATORY DATA: White blood count on admission was 13,000 and currently 6,100 this morning. Her D-dimer was high at 5.41. INR is currently therapeutic at 2.73 and it was 1.77 yesterday. CMP was grossly unremarkable. CRP was mildly elevated from 5.8 on admission to 12.1, now down to 3.7. Again, urinalysis was positive for large amount of leukocyte esterase with moderate amount of bacteria. Microbiology report did show Staphylococcus haemolyticus. HOSPITAL COURSE: She had been doing quite well during her hospital stay. She is feeling a lot better. Again, she was bridged with Lovenox and Coumadin, in which INR is now therapeutic. She did have some ongoing dyspepsia related to her recent abdominal surgery. She does feel that she has been up while walking around a little bit as she does admit she has become lazy and has not been walking around as much as she should be. She does verbalize that she is ready to go home at this time. She has been afebrile. Her vital signs have been stable. She has been maintaining her O2 saturations, currently 97%-98% on room air. DISCHARGE MEDICATIONS: We will resume all home medications as she will be initially started on Macrobid 100 mg twice a day for the next seven days and we will also start her on Coumadin 5 mg daily with recheck INR on Saturday. DISCHARGE INSTRUCTIONS: Activity as tolerated. She is to resume normal diet. She will be discharged home with home health care for INR monitoring and medication monitoring with her recent diagnosis of pulmonary emboli. Followup appointment will be Saturday with Dr. Zhen Talbot in clinic or primary provider in clinic. ARELY/ZAKI /[id number]
== END 2018-02-19 10:18 | disposition home or self-care (01) | DRG 176 ==
LOC: CC.ED 05:36 → CC.MS 08:33 → UNDOADMIN 08:33 → CC.MS 08:34
PROVIDERS: ADMIT Nurse Practitioner Family; ATTEND Family Medicine
DX: I26.99 Other pulmonary embolism without acute cor pulmonale (principal); N39.0 Urinary tract infection, site not specified; K27.9 Peptic ulcer, site unspecified, unspecified as acute or chronic, without hemorrhage or perforation; B95.7 Other staphylococcus as the cause of diseases classified elsewhere; R53.83 Other fatigue; R68.83 Chills (without fever); R10.11 Right upper quadrant pain; R11.0 Nausea; Z16.30 Resistance to unspecified antimicrobial drugs; G89.18 Other acute postprocedural pain; Z79.899 Other long term (current) drug therapy; Z90.710 Acquired absence of both cervix and uterus
CPT/HCPCS: 36415; 71275; 74177; 80048; 80053; 81001; 85025; 85379; 85610; 86140; 87086; 87088; 87186; 96361; 96374; 96375; 99285; A9270-GY; C9113; J0696; J1650; J2405; J3010; J3370; J7050; J7120; Q9967